=== PATIENT | male | born 1970 | race African-American/Black ===

== ENCOUNTER → 2017-07-12 | Outpatient (CLI) | payer BC ==
--- NOTE | 2017-07-12 11:00 | RADIOLOGY REPORT (SQ) ---
EXAM DESCRIPTION: U/S ABDOMEN COMPLETE W/DOPPLER COMPLETED DATE/TIME: 07/12/2017 10:29 am REASON FOR STUDY: ABN RESULTS OF LIVER FUNCTION TEST R94.5 ABNORMAL RESULTS OF LIVER FUNCTION STUDI ES R10.9 UNSPECIFIED ABDOMINAL PAIN COMPARISON: None. TECHNIQUE: Dynamic and static grayscale images acquired of the abdomen and recorded on PACS. Additio nal selected color Doppler and spectral images recorded. LIMITATIONS: None. FINDINGS: PANCREAS: No masses. Visualized pancreatic duct normal caliber. LIVER: Echotexture is coarse with increased echogenicity consistent with fatty infiltration. LIVER VASCULATURE: Normal directional flow of the main portal vein and hepatic veins. GALLBLADDER: No stones. Normal wall thickness. No pericholecystic fluid. ULTRASOUND-DETECTED MALDONADO'S SIGN: Negative. INTRAHEPATIC DUCTS AND COMMON DUCT: CBD and intrahepatic ducts normal caliber. No filling defects. INFERIOR VENA CAVA: Normal flow. AORTA: No aneurysm. RIGHT KIDNEY: Normal size. Normal echogenicity. No solid or suspicious masses. No hydronephrosis. No calcifications. LEFT KIDNEY: Normal size. Normal echogenicity. No solid or suspicious masses. No hydronephrosis. No calcifications. SPLEEN:Normal size. No solid masses. PERITONEAL AND PLEURAL SPACES: No ascites or effusions. OTHER: No other significant finding. IMPRESSION: FATTY LIVER. NO OTHER SIGNIFICANT FINDING. TECHNICAL DOCUMENTATION: JOB ID: [id number]- All Rights Reserved Reading location - IP/workstation name: [email or web address]
== END ==
LOC: RAD 09:52
PROVIDERS: ATTEND Family Medicine
DX: R94.5 Abnormal results of liver function studies (principal); R10.9 Unspecified abdominal pain
CPT/HCPCS: 76700; 93976

== ENCOUNTER 2017-09-03 12:28 | Emergency (ER) | payer BC ==
--- NOTE | 2017-09-03 12:54 | ER Document Report ---
ED Medical Screen (RME) - General Chief Complaint: Near Syncope Stated Complaint: ABDOMINAL PAIN Time Seen by Provider: 09/03/17 12:48 Notes: The patient is a 47-year-old male, past medical history hypertension, diabetes, presents after he had 2 brief syncopal episodes at [facility] this morning. He is also having right lower quadrant abdominal pain since yesterday. He denies nausea, vomiting, diarrhea, constipation, chest pain, back pain or headache. PE: Tenderness over RLQ, no palpable masses, RRR I have greeted and performed a rapid initial assessment of this patient. A comprehensive ED assessment and evaluation of the patient, analysis of test results and completion of the medical decision making process will be conducted by additional ED providers. TRAVEL OUTSIDE OF THE [place] IN LAST 30 DAYS: No - Related Data Allergies/Adverse Reactions: No Known Allergies Allergy (Verified 09/03/17 12:33) Past Medical History - Social History Chew tobacco use (# tins/day): No Frequency of alcohol use: None Drug Abuse: None - Past Medical History Cardiac Medical History: Reports: Hx Hypercholesterolemia, Hx Hypertension Endocrine Medical History: Reports: Hx Diabetes Mellitus Type 2 Renal/ Medical History: Denies: Hx Peritoneal Dialysis Physical Exam - Vital signs Vitals: Temp Pulse Resp BP Pulse Ox 98.5 F 70 14 113/54 L 99 09/03/17 12:36 09/03/17 12:36 09/03/17 12:36 09/03/17 12:36 09/03/17 12:36 Course - Vital Signs Vital signs: Temp Pulse Resp BP Pulse Ox 98.5 F 70 14 113/54 L 99 09/03/17 12:36 09/03/17 12:36 09/03/17 12:36 09/03/17 12:36 09/03/17 12:36 Doctor's Discharge - Discharge Referrals: SONALI ROUSSEAU MD [Primary Care Provider] - Follow up as needed
[2017-09-03] MEDS ORDERED: NORMAL SALINE 1000 ML 1,000 ML IV ONE (12:58)
[2017-09-03] MEDS ORDERED: METOCLOPRAMIDE HCL INJ/PF 10 MG/2 ML SDV IV ONE (13:29)
[2017-09-03] MEDS ORDERED: HYDROMORPHONE HCL INJ/PF 2 MG/ML AMPULE IV ONE (13:29)
--- NOTE | 2017-09-03 13:32 | ER Document Report ---
ED General - General Chief Complaint: Near Syncope Stated Complaint: ABDOMINAL PAIN Time Seen by Provider: 09/03/17 12:48 Mode of Arrival: Ambulatory Information source: Patient Notes: 47-year-old male presents with complaints of right lower quadrant pain. Patient notes pain started yesterday, patient went to [facility] and while at [facility] patient notes the pain worsened and he became dizzy lightheaded patient had 2 brief episodes of syncope witnessed by No previous surgical history TRAVEL OUTSIDE OF THE [place] IN LAST 30 DAYS: No - HPI Onset: Just prior to arrival Onset/Duration: Sudden Quality of pain: Sharp Severity: Moderate Pain Level: 4 Associated symptoms: Other Exacerbated by: Denies Relieved by: Denies Similar symptoms previously: No Recently seen / treated by doctor: No - Related Data Allergies/Adverse Reactions: No Known Allergies Allergy (Verified 09/03/17 12:33) Past Medical History - Social History Smoking Status: Never Smoker Cigarette use (# per day): No Chew tobacco use (# tins/day): No Smoking Education Provided: No Frequency of alcohol use: None Drug Abuse: None Family History: Reviewed & Not Pertinent Patient has suicidal ideation: No Patient has homicidal ideation: No - Past Medical History Cardiac Medical History: Reports: Hx Hypercholesterolemia, Hx Hypertension Endocrine Medical History: Reports: Hx Diabetes Mellitus Type 2 Renal/ Medical History: Denies: Hx Peritoneal Dialysis Review of Systems - Review of Systems Notes: REVIEW OF SYSTEMS: CONSTITUTIONAL : Denies fever, chills, or sweats. Denies recent illness. EENT: Denies eye, ear, throat, or mouth pain or symptoms. Denies nasal or sinus congestion or discharge. Denies throat, tongue, or mouth swelling or difficulty swallowing. CARDIOVASCULAR: Denies chest pain. Denies palpitations or racing or irregular heart beat. Denies ankle edema. RESPIRATORY: Denies cough, cold, or chest congestion. Denies shortness of breath, difficulty breathing, or wheezing. GASTROINTESTINAL: admits to rlq pain GENITOURINARY: Denies difficulty urinating, painful urination, burning, frequency, blood in urine, or discharge. MUSCULOSKELETAL: Denies back or neck pain or stiffness. Denies joint pain or swelling. SKIN: Denies rash, lesions or sores. HEMATOLOGIC : Denies easy bruising or bleeding. LYMPHATIC: Denies swollen, enlarged glands. NEUROLOGICAL: admits ot dizziness and syncope PSYCHIATRIC: Denies anxiety or stress. Denies depression, suicidal ideation, or homicidal ideation. ALL OTHER SYSTEMS REVIEWED AND NEGATIVE. Dictation was performed using [email or web address] voice recognition software PHYSICAL EXAMINATION: GENERAL: Well-appearing, well-nourished and in no acute distress. HEAD: Atraumatic, normocephalic. EYES: Pupils equal round and reactive to light, extraocular movements intact, sclera anicteric, conjunctiva are normal. ENT: Nares patent, oropharynx clear without exudates. Moist mucous membranes. NECK: Normal range of motion, supple without lymphadenopathy LUNGS: Breath sounds clear to auscultation bilaterally and equal. No wheezes rales or rhonchi. HEART: Regular rate and rhythm without murmurs ABDOMEN: Soft, tender with guarding in the RLQ, nondistended abdomen. No masses appreciated. Musculoskeletal: Normal range of motion, no pitting or edema. No cyanosis. NEUROLOGICAL: Cranial nerves grossly intact. Normal speech, normal gait. Normal sensory, motor exams PSYCH: Normal mood, normal affect. SKIN: Warm, Dry, normal turgor, no rashes or lesions noted. Physical Exam - Vital signs Vitals: Temp Pulse Resp BP Pulse Ox 98.5 F 70 14 113/54 L 99 09/03/17 12:36 09/03/17 12:36 09/03/17 12:36 09/03/17 12:36 09/03/17 12:36 Course - Re-evaluation Re-evalutation: 09/03/17 13:58 Patient was immediately sent for CT abdomen pelvis with contrast, no dissection is noted terminal ileitis is seen, patient will be started by is otherwise well- appearing no distress I believe that the pain cause the patient's syncope Patient has had a colonoscopy within the past 2 years no abnormalities noted After performing a Medical Screening Examination, I estimate there is LOW risk for ACUTE APPENDICITIS, BOWEL OBSTRUCTION, ACUTE CHOLECYSTITIS, PERFORATED DIVERTICULITIS, INCARCERATED HERNIA, PANCREATITIS, TESTICULAR TORSION or PERFORATED ULCER, thus I consider the discharge disposition reasonable. Also, there is no evidence or peritonitis, sepsis, or toxicity. I have reevaluated this patient multiple times and no significant life threatening changes are noted. The patient and I have discussed the diagnosis and risks, and we agree with discharging home with close follow-up with the understanding that symptoms and presentations can change. We also discussed returning to the Emergency Department immediately if new or worsening symptoms occur. We have discussed the symptoms which are most concerning (e.g., bloody stool, fever, changing or worsening pain, intractable vomiting - standard verbal up date) that necessitate immediate return. 09/03/17 14:01 - Vital Signs Vital signs: Temp Pulse Resp BP Pulse Ox 98.5 F 70 14 113/54 L 99 09/03/17 12:36 09/03/17 12:36 09/03/17 12:36 09/03/17 12:36 09/03/17 12:36 - Diagnostic Test Radiology reviewed: Reports reviewed Discharge - Discharge Clinical Impression: Ileitis Syncope Qualifiers: Syncope type: unspecified Qualified Code(s): R55 - Syncope and collapse Condition: Stable Disposition: HOME, SELF-CARE Instructions: Colitis, Nonspecific ([facility]) Prescriptions: Ciprofloxacin HCl [Cipro 500 mg Tablet] 500 mg PO BID #20 tablet Hydrocodone/Acetaminophen [[place] 5-325 mg Tablet] 1 tab PO Q6 #10 tablet Metoclopramide HCl [Reglan 10 mg Tablet] 1 - 2 tab PO Q6 #14 tablet Metronidazole [Flagyl 500 mg Tablet] 500 mg PO Q8 #30 tablet Referrals: SONALI ROUSSEAU MD [EMERIT[facility]] - Follow up tomorrow
--- NOTE | 2017-09-03 13:52 | RADIOLOGY REPORT (SQ) ---
EXAM DESCRIPTION: CTA ABDOMEN COMPLETED DATE/TIME: 09/03/2017 1:23 pm REASON FOR STUDY: abdominal pain, syncope, hypotension COMPARISON: None. TECHNIQUE: CT scan of the abdominal aorta extending to the iliac bifurcation performed with intraven ous contrast using helical scanning technique with dynamic intravenous contrast injection. Images rev iewed with lung, soft tissue, and bone windows. Reconstructed coronal and sagittal MPR images reviewe d. All images stored on PACS. Advanced 3D imaging as volume rendering, MIPS, SSD performed? yes All CT scanners at this facility use dose modulation, iterative reconstruction, and/or weight based d osing when appropriate to reduce radiation dose to as low as reasonably achievable (ALARA). [facility]: Dose Right [facility]: CareDose [facility]: Dose Right [facility]: Teradose 4D [facility]: Virobay CONTRAST TYPE AND DOSE: contrast/concentration: Isovue 370.00 mg/ml; Total Contrast Delivered: 100.0 ml; Total Saline Delivered: 90.0 ml RENAL FUNCTION: Not obtained secondary to urgency of examination. LIMITATIONS: None. FINDINGS: AORTA AND VESSELS: No aneurysm. No dissection. Renal arteries, SMA, celiac without stenosi s. LUNG BASES: No significant findings. No nodules or infiltrates. LIVER: Normal size. No masses or dilated ducts. SPLEEN: Normal size. No focal lesions. PANCREAS: No masses. No significant calcifications. No adjacent inflammation or peripancreatic fluid collections. Pancreatic duct not dilated. GALLBLADDER: No identified stones by CT criteria. No inflammatory changes to suggest cholecystitis. ADRENAL GLANDS: No significant masses or asymmetry. RIGHT KIDNEY AND URETER: No mass, calculi or urinary tract obstruction. LEFT KIDNEY AND URETER: No mass, calculi or urinary tract obstruction. RETROPERITONEUM: No retroperitoneal adenopathy, hemorrhage or masses. BOWEL AND PERITONEAL CAVITY: There is bowel wall thickening as well as surrounding inflammatory redd es in the terminal ileum. There is intramural fat noted within the cecum as well. The remaining vis ualized gastrointestinal tract is grossly unremarkable. APPENDIX: Normal. ABDOMINAL WALL: No masses. No hernias. BONY STRUCTURES: Mild sclerosis of the sacrum and stew about the inferior aspects of the sacroiliac j oints. This may represent sacroiliitis. 3-D IMAGING: Confirms the above findings. OTHER: No other significant finding. IMPRESSION: 1. No abdominal aortic aneurysm, dissection, or significant stenosis. 2. Terminal ileitis. Recommend correlation with any history of inflammatory bowel disease. 3. Suggestion of sacroiliitis. Recommend clinical correlation. TECHNICAL DOCUMENTATION: JOB ID: [id number] Quality ID # [id number]: Final reports with documentation of one or more dose reduction techniques (e.g., Au tomated exposure control, adjustment of the mA and/or kV according to patient size, use of iterative reconstruction technique) 2010 [employer]- All Rights Reserved Reading location - IP/workstation name: [email or web address]
[2017-09-03] MEDS ORDERED: CIPROFLOXACIN HCL 500 MG TABLET PO ONE (14:02)
[2017-09-03] MEDS ORDERED: METRONIDAZOLE 500 MG TABLET PO ONE (14:02)
[2017-09-03 14:05] LABS: HEMATOCRIT 43.2 % (37.9-51.0); HEMOGLOBIN 14.1 g/dL (13.5-17.0); MEAN CORPUSCULAR HGB CONC 32.7 g/dL (32.0-36.0); MEAN CORPUSCULAR VOLUME 83 fl (80-97); PLATELET COUNT 192 10^3/uL (150-450); RED BLOOD COUNT 5.22 10^6/uL (4.35-5.55); RED CELL DISTRIBUTION WIDTH 15.2 % (11.5-14.0); WHITE BLOOD COUNT 18.8 10^3/uL (4.0-10.5)
[2017-09-03 14:33] LABS: ABSOLUTE LYMPHOCYTES# (MANUAL) 0.6 10^3/uL (0.5-4.7); ABSOLUTE MONOCYTES # (MANUAL) 0.9 10^3/uL (0.1-1.4); ABSOLUTE NEUTROPHILS# (MANUAL) 17.3 10^3/uL (1.7-8.2); BASOPHILS % (MANUAL) 0 % (0-2); EOSINOPHILS % (MANUAL) 0 % (0-6); LYMPHOCYTES % (MANUAL) 3 % (13-45); MONOCYTES % (MANUAL) 5 % (3-13); SEGMENTED NEUTROPHILS % (MAN) 92 % (42-78); TOTAL CELLS COUNTED 100
[2017-09-03 14:34] LABS: ANISOCYTOSIS SLIGHT; HYPOCHROMASIA SLIGHT; OVALOCYTES SLIGHT; POIKILOCYTOSIS SLIGHT; TOXIC VACUOLATION PRESENT
[2017-09-03 14:35] LABS: ALANINE AMINOTRANSFERASE 34 U/L (21-72); ALBUMIN 4.7 g/dL (3.5-5.0); ALKALINE PHOSPHATASE 100 U/L (38-126); ANION GAP 16 (5-19); ASPARTATE AMINO TRANSFERASE 42 U/L (17-59); BILIRUBIN,DIRECT 0.4 mg/dL (0.0-0.4); BILIRUBIN,TOTAL 1.5 mg/dL (0.2-1.3); BLOOD UREA NITROGEN 20 mg/dL (7-20); CALCIUM 9.8 mg/dL (8.4-10.2); CARBON DIOXIDE 25 mmol/L (22-30); CHLORIDE 101 mmol/L (98-107); GLUCOSE 133 mg/dL (75-110); LIPASE 68.1 U/L (23-300); PLATELET COMMENT ADEQUATE; POTASSIUM 4.7 mmol/L (3.6-5.0); SODIUM 141.7 mmol/L (137-145); TOTAL PROTEIN 7.9 g/dL (6.3-8.2)
[2017-09-03] MEDS ORDERED: NORMAL SALINE 1000 ML 2,000 ML IV ONE (15:16)
[2017-09-03 17:04] VITALS: BP 100/57
[2017-09-03 17:43] LABS: APPEARANCE,URINE CLOUDY; BILIRUBIN,URINE NEGATIVE (NEGATIVE); COLOR,URINE AMBER; GLUCOSE, URINE NEGATIVE (NEGATIVE); KETONES,URINE NEGATIVE (NEGATIVE); LEUKOCYTE ESTERASE,URINE NEGATIVE (NEGATIVE); NITRITE,URINE NEGATIVE (NEGATIVE); PROTEIN,URINE 100 mg/dL (NEGATIVE); URINE SPECIFIC GRAVITY 1.021
[2017-09-03 17:54] LABS: URINE AMPHETAMINES SCREEN NEGATIVE; URINE BARBITURATES SCREEN NEGATIVE; URINE BENZODIAZEPINES SCREEN NEGATIVE; URINE COCAINE SCREEN NEGATIVE; URINE MARIJUANA (THC) SCREEN NEGATIVE; URINE METHADONE SCREEN NEGATIVE; URINE PHENCYCLIDINE SCREEN NEGATIVE
== END 2017-09-03 17:30 | disposition home or self-care (01) ==
LOC: ER 12:28
DX: K52.9 Noninfective gastroenteritis and colitis, unspecified (principal); R55 Syncope and collapse; E78.00 Pure hypercholesterolemia, unspecified; I10 Essential (primary) hypertension; E11.9 Type 2 diabetes mellitus without complications
CPT/HCPCS: 99284; 96361; 96374; 96375; 36415; 83605 ×2; 83690; 85025; 80053; 81001; 80307; 74175; J2765; J1170; J7030

== ENCOUNTER 2017-09-04 10:04 | Inpatient (IN) | payer BC ==
[2017-09-04] MEDS ORDERED: ONDANSETRON 4 MG TAB.RAPDIS PO PRN (10:40)
[2017-09-04] MEDS ORDERED: ACETAMINOPHEN 325 MG TABLET PO PRN (10:40)
[2017-09-04] MEDS ORDERED: OXYCODONE-ACETAMINOPHEN 5-325 MG TABLET PO PRN (10:40)
[2017-09-04] MEDS ORDERED: DEXTROSE 40% GEL 15 GM TUBE PO PRN ×2 (10:45)
[2017-09-04] MEDS ORDERED: INSULIN LISPRO 100 UNIT/ML 3 ML VIAL SUBCUT PRN (10:45)
[2017-09-04] MEDS ORDERED: GLUCAGON,HUMAN RECOMB 1 MG INJ IM PRN (10:45)
[2017-09-04] MEDS ORDERED: DEXTROSE 50%-WATER 25 GM/50 ML DISP.SYRIN IV PRN ×2 (10:45)
--- NOTE | 2017-09-04 10:52 | PDOC H&P ---
History of Present Illness Admission Date/PCP: 09/04/17 10:04 CRISTIAN GARCIA MD Patient complains of: Abdominal pain History of Present Illness: 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 47 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 This is a 47-year-old male with the history of the type 2 diabetes mellitus history of the hypertension's hyperlipidemia and a fatty liver came to the emergency department with a complaint of generalized abdominal pain nausea and not feeling well and passing out episode since last couple of days According to the patient's he was suddenly onset of this abdominal pain not feeling well he was in a [facility] yesterday and because of the pain patients pretty much passing out and patient was brought to the emergency department by the ambulance and the patient have a CT scan of the abdomen and pelvis with IV contrast was done with so some ileitis and some inflammatory disease but other than that no acute finding but patient's white count was 18,000 patient was discharged with the p.o. antibioticWhich patients did not start it yet Patients came to see me in the office this morning still complaining of abdominal pain no fever no chills no nausea no vomiting Patients have a nose family history of the Crohn's disease or inflammatory disease Patient's recently have ultrasound of the abdomen was done was suggestive fatty liver but no other acute finding At this point so decided to admit in the hospital because of the patient's still complaining of her pain and elevated white counts and further GI evaluations and discussed with the patient and the and agree Past Medical History Cardiac Medical History: Reports: Hyperlipidema, Hypertension Endocrine Medical History: Reports: Diabetes Mellitus Type 2 Social History Information Source: Patient Smoking Status: Never Smoker Frequency of Alcohol Use: None Hx Recreational Drug Use: No Family History Family History: Reviewed & Not Pertinent Parental Family History Reviewed: Yes Children Family History Reviewed: Yes Sibling(s) Family History Reviewed.: Yes Medication/Allergy Home Medications: Ciprofloxacin HCl [Cipro 500 mg Tablet] 500 mg PO BID #20 tablet 09/03/17 Hydrocodone/Acetaminophen [[place] 5-325 mg Tablet] 1 tab PO Q6 #10 tablet Metoclopramide HCl [Reglan 10 mg Tablet] 1 - 2 tab PO Q6 #14 tablet 09/03/17 Metronidazole [Flagyl 500 mg Tablet] 500 mg PO Q8 #30 tablet 09/03/17 Allergies/Adverse Reactions: No Known Allergies Allergy (Verified 09/03/17 12:33) Review of Systems Constitutional: ABSENT: chills, fever(s), headache(s), weight gain, weight loss Eyes: ABSENT: visual disturbances Ears: ABSENT: hearing changes Cardiovascular: ABSENT: chest pain, dyspnea on exertion, edema, orthropnea, palpitations Respiratory: ABSENT: cough, hemoptysis Gastrointestinal: PRESENT: abdominal pain. ABSENT: constipation, diarrhea, hematemesis, hematochezia, nausea, vomiting Genitourinary: ABSENT: dysuria, hematuria Musculoskeletal: ABSENT: joint swelling Integumentary: ABSENT: rash, wounds Neurological: ABSENT: abnormal gait, abnormal speech, confusion, dizziness, focal weakness, syncope Psychiatric: ABSENT: anxiety, depression, homidical ideation, suicidal ideation Endocrine: ABSENT: cold intolerance, heat intolerance, menstrual abnormalities, polydipsia, polyuria Hematologic/Lymphatic: ABSENT: easy bleeding, easy bruising, lymphadenopathy Physical Exam General appearance: PRESENT: no acute distress, well-developed, well-nourished Head exam: PRESENT: atraumatic, normocephalic Eye exam: PRESENT: conjunctiva pink, EOMI, PERRLA. ABSENT: scleral icterus Ear exam: PRESENT: normal external ear exam Mouth exam: PRESENT: moist, tongue midline Neck exam: PRESENT: full ROM. ABSENT: carotid bruit, JVD, lymphadenopathy, thyromegaly Respiratory exam: PRESENT: clear to auscultation higinio Cardiovascular exam: PRESENT: RRR. ABSENT: diastolic murmur, rubs, systolic murmur Pulses: PRESENT: normal dorsalis pedis pul, +2 pedal pulses bilateral Vascular exam: PRESENT: normal capillary refill GI/Abdominal exam: PRESENT: normal bowel sounds, soft, tenderness. ABSENT: distended, guarding, mass, organolmegaly, rebound Rectal exam: PRESENT: deferred Extremities exam: ABSENT: pedal edema Musculoskeletal exam: PRESENT: ambulatory Neurological exam: PRESENT: alert, awake, oriented to person, oriented to place , oriented to time, oriented to situation, CN II-XII grossly intact. ABSENT: motor sensory deficit Psychiatric exam: PRESENT: appropriate affect, normal mood. ABSENT: homicidal ideation, suicidal ideation Skin exam: PRESENT: dry, intact, warm. ABSENT: cyanosis, rash Assessment & Plan - Diagnosis (1) Ileitis Is this a current diagnosis for this admission?: Yes Plan: Start the patient on the Cipro and Flagyl and clear liquid diets and IV fluid and consult the GI and general surgery (2) Abdominal pain Qualifiers: Abdominal location: generalized Qualified Code(s): R10.84 - Generalized abdominal pain Is this a current diagnosis for this admission?: Yes Plan: Repeat the patient's clear liquid diets CT scan of the abdomen and pelvis suggest most likely ileitis with some inflammatory disease with consult to general surgery and GI for further evaluation (3) Type 2 diabetes mellitus Qualifiers: Diabetes mellitus usp insulin use: without usp use Is this a current diagnosis for this admission?: Yes Plan: Continues to current medications and sliding scale (4) Hypertension Qualifiers: Hypertension type: essential hypertension Qualified Code(s): I10 - Essential (primary) hypertension Is this a current diagnosis for this admission?: Yes Plan: Continues to current medications (5) Hyperlipidemia Qualifiers: Hyperlipidemia type: unspecified Qualified Code(s): E78.5 - Hyperlipidemia , unspecified Is this a current diagnosis for this admission?: Yes (6) Fatty liver Is this a current diagnosis for this admission?: Yes Plan: Currently all stable (7) Syncope Qualifiers: Syncope type: unspecified Qualified Code(s): R55 - Syncope and collapse Is this a current diagnosis for this admission?: Yes Plan: Patient EKG and all workup and yesterday ER was negative will continues to monitor most likely due to the pain - Time Time Spent: 30 to 50 Minutes Medications reviewed and adjusted accordingly: Yes Anticipated discharge: Home Within: Other - Inpatient Certification Medical Necessity: Need Close Monitoring Due to Risk of Patient Decompensation, Need For IV Fluids, Need for IV Antibiotics Post Hospital Care: D/C Certified Orthotist Practice Manager Documentation - Plan Summary Plan Summary: Continues IV fluid continues IV antibiotic
[2017-09-04] MEDS ORDERED: ENOXAPARIN SODIUM INJ 40 MG/0.4 ML DISP.SYRIN SUBCUT ONE (12:00)
[2017-09-04] MEDS: NORMAL SALINE 1000 ML 1,000 ML IV PRN ×2 (12:03→19:47)
[2017-09-04] MEDS: CIPROFLOXACIN 400 MG/D5W RTU 400 MG/200 ML RTUPB IV SCH ×2 (12:03→23:43)
[2017-09-04 12:32] LABS: ABSOLUTE LYMPHOCYTES (AUTO) 2.5 10^3/uL (0.5-4.7); ABSOLUTE MONOCYTES (AUTO) 1.3 10^3/uL (0.1-1.4); ABSOLUTE NEUT (AUTO) 15.8 10^3/uL (1.7-8.2); BASOPHILS % (AUTO) 0.1 % (0-2); EOSINOPHILS % (AUTO) 0.1 % (0-6); HEMATOCRIT 38.9 % (37.9-51.0); HEMOGLOBIN 12.7 g/dL (13.5-17.0); LYMPHOCYTES % (AUTO) 12.5 % (13-45); MEAN CORPUSCULAR HGB CONC 32.7 g/dL (32.0-36.0); MEAN CORPUSCULAR VOLUME 83 fl (80-97); MONOCYTES % (AUTO) 6.8 % (3-13); PLATELET COUNT 177 10^3/uL (150-450); RED BLOOD COUNT 4.71 10^6/uL (4.35-5.55); RED CELL DISTRIBUTION WIDTH 15.1 % (11.5-14.0); SEGMENTED NEUTROPHILS % (AUTO) 80.5 % (42-78); TOTAL CELLS COUNTED % (AUTO) 100 %; WHITE BLOOD COUNT 19.6 10^3/uL (4.0-10.5)
[2017-09-04 13:04] LABS: ALANINE AMINOTRANSFERASE 29 U/L (21-72); ALBUMIN 4.3 g/dL (3.5-5.0); ALKALINE PHOSPHATASE 80 U/L (38-126); ANION GAP 12 (5-19); ASPARTATE AMINO TRANSFERASE 35 U/L (17-59); BILIRUBIN,DIRECT 0.3 mg/dL (0.0-0.4); BILIRUBIN,TOTAL 1.7 mg/dL (0.2-1.3); BLOOD UREA NITROGEN 18 mg/dL (7-20); CARBON DIOXIDE 28 mmol/L (22-30); CHLORIDE 102 mmol/L (98-107); GLUCOSE 119 mg/dL (75-110); LIPASE 43.6 U/L (23-300); SODIUM 142.3 mmol/L (137-145); TOTAL PROTEIN 7.7 g/dL (6.3-8.2)
[2017-09-04 13:11] LABS: POTASSIUM 3.7 mmol/L (3.6-5.0)
[2017-09-04] MEDS: HYDROMORPHONE HCL INJ/PF 2 MG/ML AMPULE IV PRN ×2 (13:30→20:24)
--- NOTE | 2017-09-04 15:04 | PDOC CONSULTATION ---
Consultation Consult Date: 09/04/17 Attending physician:: MARCY GARCIA Consult reason:: Abdominal pain History of Present Illness Admission Date/PCP: 09/04/17 10:04 CRISTIAN GARCIA MD History of Present Illness: 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 47 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 Admitted directly to the hospital by Dr. Garcia for approximately 48 hours of abdominal pain right lower quadrant. The patient reports he was doing fine, usual state of health until yesterday morning during zoroastrianism he felt sudden onset right lower quadrant pain, and fell asleep in the pew. He was brought by ground rescue to [facility], and in route collapsed again by his verbal report. He was evaluated in the emergency department where he is found to have right lower quadrant tenderness, and a leukocytosis of 18,000. He had a CT scan of the abdomen and pelvis without oral contrast which showed inflammatory changes around the terminal ileum just at the ileocecal junction. There were no other pathologic findings. He was discharged home on p.o. medications but did not get the prescription filled. Overnight he had persisting pain. Last bowel movement was early this morning, diarrhea. He has been n.p.o. for approximately a day and a half. He was seen by Dr. Garcia this morning found to have persisting pain, and right lower quadrant tenderness and was made a direct admit. Since hospitalization is received IV fluids and antibiotics and feels no better. There is no nausea or vomiting. He has received pain medication. He actually had clear liquids for lunch although limited amount. Surgery was consulted. Patient has never had a gastrointestinal problem by verbal report, denies colonoscopy. Past Medical History Past Medical History: Hypertension, diabetes mellitus, hypercholesterolemia Cardiac Medical History: Reports: Hyperlipidema, Hypertension Endocrine Medical History: Reports: Diabetes Mellitus Type 2 Past Surgical History Past Surgical History: No surgeries Social History Smoking Status: Never Smoker Frequency of Alcohol Use: None Hx Recreational Drug Use: No Hx Prescription Drug Abuse: No Family History Family History: Reviewed & Not Pertinent Parental Family History Reviewed: Yes Children Family History Reviewed: Yes Sibling(s) Family History Reviewed.: Yes Medication/Allergy Home Medications: Aspirin [Aspirin EC] 81 mg PO DAILY 09/04/17 Ergocalciferol (Vitamin D2) [Drisdol 50,000 unit (1.25MG) Capsule] 50,000 unit PO MO@1000 09/04/17 Fluticasone Propionate [Flonase Nasal Range 50 Mcg/Range 16 gm] 2 sprays NASL DAILY 09/04/17 Glipizide [Glucotrol 5 mg Tablet] 2.5 mg PO BID 09/04/17 Simvastatin [Zocor 20 mg Tablet] 20 mg PO QHS 09/04/17 Valsartan/Hydrochlorothiazide [Diovan Hct 160-12.5 mg Tab] 1 tab PO DAILY Allergies/Adverse Reactions: No Known Allergies Allergy (Verified 09/03/17 12:33) Review of Systems Constitutional: PRESENT: other - Patient denies constitutional symptoms Eyes: ABSENT: visual disturbances Ears: ABSENT: hearing changes Cardiovascular: ABSENT: chest pain, dyspnea on exertion, edema, orthropnea, palpitations Respiratory: ABSENT: cough, hemoptysis Gastrointestinal: PRESENT: other - As per HPI Genitourinary: PRESENT: other - Patient denies Musculoskeletal: ABSENT: joint swelling Integumentary: ABSENT: rash, wounds Neurological: ABSENT: abnormal gait, abnormal speech, confusion, dizziness, focal weakness, syncope Physical Exam Vital Signs: Temp Pulse Resp BP Pulse Ox 98.8 F 74 18 109/50 L 98 09/04/17 12:40 09/04/17 12:40 09/04/17 12:40 09/04/17 12:40 09/04/17 12:40 Intake & Output 09/03/17 09/04/17 09/05/17 06:59 06:59 06:59 Weight 99.79 kg General appearance: PRESENT: no acute distress Head exam: PRESENT: normocephalic Eye exam: PRESENT: EOMI Mouth exam: PRESENT: dry mucosa Neck exam: PRESENT: full ROM Respiratory exam: PRESENT: clear to auscultation higinio Cardiovascular exam: PRESENT: RRR Pulses: PRESENT: normal carotid pulses, normal radial pulses, normal femoral pulses GI/Abdominal exam: PRESENT: other - Abdomen is soft, not distended; there are no peritoneal signs. There is right lower quadrant tenderness with limited guarding. Rectal exam: PRESENT: deferred Gentrourinary exam: PRESENT: other - No inguinal hernias Extremities exam: PRESENT: full ROM Neurological exam: PRESENT: alert, awake, oriented to person, oriented to place , oriented to time, oriented to situation Results Laboratory Results: 09/04/17 12:02 09/04/17 12:02 09/04/17 09/04/17 12:02 12:02 WBC 19.6 H RBC 4.71 Hgb 12.7 L Hct 38.9 MCV 83 MCH 27.0 MCHC 32.7 RDW 15.1 H Plt Count 177 Seg Neutrophils % 80.5 H Lymphocytes % 12.5 L Monocytes % 6.8 Eosinophils % 0.1 Basophils % 0.1 Absolute Neutrophils 15.8 H Absolute Lymphocytes 2.5 Absolute Monocytes 1.3 Absolute Eosinophils 0.0 Absolute Basophils 0.0 Sodium 142.3 Potassium 3.7 D Chloride 102 Carbon Dioxide 28 Anion Gap 12 BUN 18 Creatinine 0.87 Est GFR ( Amer) > 60 Est GFR (Non-Af Amer) > 60 Glucose 119 H Calcium 9.0 Total Bilirubin 1.7 H AST 35 ALT 29 Alkaline Phosphatase 80 Total Protein 7.7 Albumin 4.3 Lipase 43.6 Status: Image reviewed by me - CT scan reviewed by me; limited study due to absence of oral contrast; the appendix appears retrocecal and uninvolved in the terminal ileal inflammation. There is some mesenteric stranding of the ileocecal region. There is no obvious obstruction , free fluid or free air. Assessment & Plan - Diagnosis (1) Abdominal pain Qualifiers: Abdominal location: generalized Qualified Code(s): R10.84 - Generalized abdominal pain Is this a current diagnosis for this admission?: Yes Plan: Impression: Acute abdominal pain right lower quadrant localized associated with leukocytosis and nonenhanced CT scan findings consistent with inflammation of the terminal ileum consistent with ileitis versus microperforation versus malignancy; cannot rule out localized inflammatory bowel disease; no evidence of qasim peritonitis, peritoneal fluid, free air, or acute appendicitis. Recommendations: 1. Keep n.p.o. 2. Increase IV fluids 3. Continue empiric antibiotic therapy 4. We will reexamine patient later today. If pain worsens, repeat imaging with oral contrast, or consideration for laparoscopic possible open exploration. This was provisionally discussed with patient and his . (2) Fatty liver Is this a current diagnosis for this admission?: Yes (3) Hyperlipidemia Qualifiers: Hyperlipidemia type: unspecified Qualified Code(s): E78.5 - Hyperlipidemia , unspecified Is this a current diagnosis for this admission?: Yes (4) Hypertension Qualifiers: Hypertension type: essential hypertension Qualified Code(s): I10 - Essential (primary) hypertension Is this a current diagnosis for this admission?: Yes (5) Type 2 diabetes mellitus Qualifiers: Diabetes mellitus fpc insulin use: without adjunct faculty for medical terminology use Is this a current diagnosis for this admission?: Yes (6) Ileitis Is this a current diagnosis for this admission?: Yes (7) Syncope Qualifiers: Syncope type: unspecified Qualified Code(s): R55 - Syncope and collapse Is this a current diagnosis for this admission?: Yes - Time Time Spent: 50 to 70 Minutes Smoking Cessation Education: over 10 minutes Medications reviewed and adjusted accordingly: Yes Anticipated discharge: Home - Inpatient Certification Based on my medical assessment, after consideration of the patient's comorbidities, presenting symptoms, or acuity I expect that the services needed warrant INPATIENT care.: Yes I certify that my determination is in accordance with my understanding of Medicare's requirements for reasonable and necessary INPATIENT services [42 CFR 412.3e].: Yes Medical Necessity: Need For IV Fluids, Need for Pain Control, Need for IV Antibiotics
[2017-09-04] MEDS: METRONIDAZOLE 500 MG/NS RTU 500 MG/100 ML RTUPB IV SCH ×2 (15:52→20:25)
--- NOTE | 2017-09-04 19:42 | PDOC CONSULTATION ---
Consultation Consult Date: 09/04/17 History of Present Illness Admission Date/PCP: 09/04/17 10:04 CRISTIAN GARCIA MD History of Present Illness: 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 47 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 patient who was admitted directly from Dr. Garcia's office with right lower quadrant pain. He woke up yesterday morning with pain and it has been constant ever since. He denies any nausea or vomiting but had one episode of diarrhea this morning. He had no diarrhea for the fall was 30 hours of his illness. He did have a fever of 101 last night. There is no one else at home with similar illness. He was at the emergency room last night where he had a CTA of the chest and abdomen without contrast showing evidence of terminal ileitis and suggestion of sacroiliitis. He did receive IV antibiotics are the emergency room last night and is currently on Cipro and Flagyl. His white count was 19 on admission with a left shift. He had an ultrasound in June for abdominal pain and these only showed fatty liver. He had a similar episode of right lower quadrant pain back in June that lasted for about a week. The pain was constant with no associated change in bowel habit, nausea, or vomiting. He has had no other episodes in the past. His bowels usually move once or twice a day. He has lost about 20 pounds in the last few months when he has been eating less trying to lose weight. Past Medical History Cardiac Medical History: Reports: Hyperlipidema, Hypertension Endocrine Medical History: Reports: Diabetes Mellitus Type 2 Social History Smoking Status: Never Smoker Frequency of Alcohol Use: None Hx Recreational Drug Use: No Hx Prescription Drug Abuse: No Family History Family History: Reviewed & Not Pertinent Parental Family History Reviewed: No Children Family History Reviewed: NA Sibling(s) Family History Reviewed.: NA Medication/Allergy Home Medications: Aspirin [Aspirin EC] 81 mg PO DAILY 09/04/17 Ergocalciferol (Vitamin D2) [Drisdol 50,000 unit (1.25MG) Capsule] 50,000 unit PO MO@1000 09/04/17 Fluticasone Propionate [Flonase Nasal Minden 50 Mcg/Minden 16 gm] 2 sprays NASL DAILY 09/04/17 Glipizide [Glucotrol 5 mg Tablet] 2.5 mg PO BID 09/04/17 Simvastatin [Zocor 20 mg Tablet] 20 mg PO QHS 09/04/17 Valsartan/Hydrochlorothiazide [Diovan Hct 160-12.5 mg Tab] 1 tab PO DAILY Allergies/Adverse Reactions: No Known Allergies Allergy (Verified 09/03/17 12:33) Review of Systems All systems: reviewed and no additional remarkable complaints except as stated Physical Exam Vital Signs: Temp Pulse Resp BP Pulse Ox 98.8 F 77 18 95/48 L 96 09/04/17 16:18 09/04/17 16:18 09/04/17 16:18 09/04/17 16:18 09/04/17 16:18 Intake & Output 09/03/17 09/04/17 09/05/17 06:59 06:59 06:59 Intake Total 200 Balance 200 Weight 99.79 kg Exam: General: Patient is alert and looks well. HEENT: There is no pallor or jaundice. PERRLA. Oropharynx normal Respiratory: No chest deformity. No respiratory distress. Chest wall palpitation was unremarkable. Breath sounds were normal Cardiovascular: Heart sounds 1 and 2 normal with no murmurs. Abdominal: Not distended. Mild diffuse tenderness with more tenderness in the right lower quadrant. No guarding or rebound. Liver and spleen not palpable. No ascites demonstrated. Bowel sounds active. Rectal examination was deferred. Extremities: No edema Neurological: Alert and oriented x4. Grossly nonfocal. Normal speech Skin: No significant rash Psychological: Normal affect Results Laboratory Results: 09/04/17 12:02 09/04/17 12:02 09/04/17 09/04/17 12:02 12:02 WBC 19.6 H RBC 4.71 Hgb 12.7 L Hct 38.9 MCV 83 MCH 27.0 MCHC 32.7 RDW 15.1 H Plt Count 177 Seg Neutrophils % 80.5 H Lymphocytes % 12.5 L Monocytes % 6.8 Eosinophils % 0.1 Basophils % 0.1 Absolute Neutrophils 15.8 H Absolute Lymphocytes 2.5 Absolute Monocytes 1.3 Absolute Eosinophils 0.0 Absolute Basophils 0.0 Sodium 142.3 Potassium 3.7 D Chloride 102 Carbon Dioxide 28 Anion Gap 12 BUN 18 Creatinine 0.87 Est GFR ( Amer) > 60 Est GFR (Non-Af Amer) > 60 Glucose 119 H Calcium 9.0 Total Bilirubin 1.7 H AST 35 ALT 29 Alkaline Phosphatase 80 Total Protein 7.7 Albumin 4.3 Lipase 43.6 Assessment & Plan - Diagnosis (1) Right lower quadrant abdominal pain Is this a current diagnosis for this admission?: Yes Plan: He presents with a 36-48 hour history of right lower quadrant pain with elevated WBC, some fever and one episode of diarrhea. His symptoms are suggestive of an infectious process except that he had a one-week episode of similar symptoms about 2 months ago. Inflammatory disease would need to be ruled out especially with the suggestion for sacroiliitis on the CAT scan. I will suggest a CT enterography while he will continue with Cipro and Flagyl. (2) Abnormal CT scan, gastrointestinal tract Is this a current diagnosis for this admission?: Yes
--- NOTE | 2017-09-04 20:22 | EKG REPORT ---
SEVERITY:- BORDERLINE ECG - SINUS RHYTHM BORDERLINE T ABNORMALITIES, INFERIOR LEADS : Confirmed by: Consuelo Jimenez MD 04-Sep-2017 20:20:55
[2017-09-04] MEDS: FAMOTIDINE INJ/PF 20 MG/2 ML SDV IV SCH (21:48)
[2017-09-05] MEDS: NORMAL SALINE 1000 ML 1,000 ML IV PRN ×3 (03:04→21:57)
[2017-09-05] MEDS: METRONIDAZOLE 500 MG/NS RTU 500 MG/100 ML RTUPB IV SCH ×4 (04:25→20:19)
[2017-09-05 06:19] LABS: ABSOLUTE LYMPHOCYTES (AUTO) 1.6 10^3/uL (0.5-4.7); ABSOLUTE NEUT (AUTO) 11.2 10^3/uL (1.7-8.2); BASOPHILS % (AUTO) 0.3 % (0-2); EOSINOPHILS % (AUTO) 0.1 % (0-6); HEMATOCRIT 34.7 % (37.9-51.0); HEMOGLOBIN 11.6 g/dL (13.5-17.0); LYMPHOCYTES % (AUTO) 11.5 % (13-45); MEAN CORPUSCULAR HEMOGLOBIN 27.4 pg (27.0-33.4); MEAN CORPUSCULAR HGB CONC 33.5 g/dL (32.0-36.0); MEAN CORPUSCULAR VOLUME 82 fl (80-97); MONOCYTES % (AUTO) 7.1 % (3-13); PLATELET COUNT 148 10^3/uL (150-450); RED BLOOD COUNT 4.24 10^6/uL (4.35-5.55); RED CELL DISTRIBUTION WIDTH 14.9 % (11.5-14.0); TOTAL CELLS COUNTED % (AUTO) 100 %; WHITE BLOOD COUNT 13.9 10^3/uL (4.0-10.5)
[2017-09-05 06:48] LABS: ALANINE AMINOTRANSFERASE 28 U/L (21-72); ALBUMIN 2.9 g/dL (3.5-5.0); ALKALINE PHOSPHATASE 61 U/L (38-126); ANION GAP 10 (5-19); ASPARTATE AMINO TRANSFERASE 25 U/L (17-59); BILIRUBIN,DIRECT 0.4 mg/dL (0.0-0.4); BILIRUBIN,TOTAL 1.6 mg/dL (0.2-1.3); BLOOD UREA NITROGEN 14 mg/dL (7-20); CALCIUM 8.3 mg/dL (8.4-10.2); CARBON DIOXIDE 23 mmol/L (22-30); CHLORIDE 107 mmol/L (98-107); GLUCOSE 113 mg/dL (75-110); LIPASE 50.3 U/L (23-300); POTASSIUM 3.6 mmol/L (3.6-5.0); SODIUM 140.4 mmol/L (137-145); TOTAL PROTEIN 5.8 g/dL (6.3-8.2)
[2017-09-05] MEDS ORDERED: ENOXAPARIN SODIUM INJ 40 MG/0.4 ML DISP.SYRIN SUBCUT SCH (10:00)
[2017-09-05] MEDS ORDERED: (PENDING PHARMACY ID) (Valsartan/Hydrochlorothiazide [Diovan Hct 160-12.5 Mg Tab] 1 TAB) PO SCH (10:00)
[2017-09-05] MEDS: ENOXAPARIN SODIUM INJ 40 MG/0.4 ML DISP.SYRIN SUBCUT SCH (10:19)
[2017-09-05] MEDS: FAMOTIDINE INJ/PF 20 MG/2 ML SDV IV SCH ×2 (10:19→21:57)
[2017-09-05] MEDS: VALSARTAN 160 MG TABLET PO SCH (11:25)
[2017-09-05] MEDS: HYDROCHLOROTHIAZIDE 12.5 MG TABLET PO SCH (11:25)
--- NOTE | 2017-09-05 12:34 | PDOC PROGRESS REPORT ---
Subjective Progress Note for:: 09/05/17 Subjective:: Patient is currently doing fair Patient slept last night with the pain medications Patient still have a pain Patient seen by the Dr. Mistry ordered on the CT scan with oral contrast and IV Patient seen by general surgery Patient still have a low-grade temperature patient's white count is getting better Reason For Visit: ABDOMINAL PAIN Physical Exam Vital Signs: Temp Pulse Resp BP Pulse Ox 98.6 F 83 18 114/57 L 94 09/05/17 07:58 09/05/17 07:58 09/05/17 08:27 09/05/17 07:58 09/05/17 07:58 Intake & Output 09/04/17 09/05/17 09/06/17 06:59 06:59 06:59 Intake Total 300 Output Total 200 Balance 100 Weight 99.79 kg General appearance: PRESENT: no acute distress, well-developed, well-nourished Head exam: PRESENT: atraumatic, normocephalic Eye exam: PRESENT: conjunctiva pink, EOMI, PERRLA. ABSENT: scleral icterus Ear exam: PRESENT: normal external ear exam Mouth exam: PRESENT: moist, tongue midline Neck exam: PRESENT: full ROM. ABSENT: carotid bruit, JVD, lymphadenopathy, thyromegaly Respiratory exam: PRESENT: clear to auscultation higinio Cardiovascular exam: PRESENT: RRR. ABSENT: diastolic murmur, rubs, systolic murmur Pulses: PRESENT: normal dorsalis pedis pul, +2 pedal pulses bilateral Vascular exam: PRESENT: normal capillary refill GI/Abdominal exam: PRESENT: normal bowel sounds, soft, tenderness. ABSENT: distended, guarding, mass, organolmegaly, rebound Rectal exam: PRESENT: deferred Neurological exam: PRESENT: alert, awake, oriented to person, oriented to place , oriented to time, oriented to situation, CN II-XII grossly intact. ABSENT: motor sensory deficit Psychiatric exam: PRESENT: appropriate affect, normal mood. ABSENT: homicidal ideation, suicidal ideation Skin exam: PRESENT: dry, intact, warm. ABSENT: cyanosis, rash Results Laboratory Results: 09/05/17 06:09 09/05/17 06:09 09/04/17 09/04/17 09/05/17 12:02 12:02 06:09 WBC 19.6 H 13.9 H RBC 4.71 4.24 L Hgb 12.7 L 11.6 L Hct 38.9 34.7 L MCV 83 82 MCH 27.0 27.4 MCHC 32.7 33.5 RDW 15.1 H 14.9 H Plt Count 177 148 L Seg Neutrophils % 80.5 H 81.0 H Lymphocytes % 12.5 L 11.5 L Monocytes % 6.8 7.1 Eosinophils % 0.1 0.1 Basophils % 0.1 0.3 Absolute Neutrophils 15.8 H 11.2 H Absolute Lymphocytes 2.5 1.6 Absolute Monocytes 1.3 1.0 Absolute Eosinophils 0.0 0.0 Absolute Basophils 0.0 0.0 Sodium 142.3 Potassium 3.7 D Chloride 102 Carbon Dioxide 28 Anion Gap 12 BUN 18 Creatinine 0.87 Est GFR ( Amer) > 60 Est GFR (Non-Af Amer) > 60 Glucose 119 H Calcium 9.0 Total Bilirubin 1.7 H AST 35 ALT 29 Alkaline Phosphatase 80 Total Protein 7.7 Albumin 4.3 Lipase 43.6 Stool Occult Blood 09/05/17 09/05/17 06:09 11:45 WBC RBC Hgb Hct MCV MCH MCHC RDW Plt Count Seg Neutrophils % Lymphocytes % Monocytes % Eosinophils % Basophils % Absolute Neutrophils Absolute Lymphocytes Absolute Monocytes Absolute Eosinophils Absolute Basophils Sodium 140.4 Potassium 3.6 Chloride 107 Carbon Dioxide 23 Anion Gap 10 BUN 14 Creatinine 0.84 Est GFR ( Amer) > 60 Est GFR (Non-Af Amer) > 60 Glucose 113 H Calcium 8.3 L Total Bilirubin 1.6 H AST 25 ALT 28 Alkaline Phosphatase 61 Total Protein 5.8 L Albumin 2.9 L Lipase 50.3 Stool Occult Blood NEGATIVE Assessment & Plan - Diagnosis (1) Ileitis Is this a current diagnosis for this admission?: Yes Plan: Continues to IV antibiotic follow with the GI and surgery (2) Abdominal pain Qualifiers: Abdominal location: generalized Qualified Code(s): R10.84 - Generalized abdominal pain Is this a current diagnosis for this admission?: Yes Plan: Patient still continues n.p.o. continues IV fluid will reduce to 150c (3) Type 2 diabetes mellitus Qualifiers: Diabetes mellitus clerk general insulin use: without care home use Is this a current diagnosis for this admission?: Yes Plan: Continues to current medications and sliding scale (4) Hypertension Qualifiers: Hypertension type: essential hypertension Qualified Code(s): I10 - Essential (primary) hypertension Is this a current diagnosis for this admission?: Yes Plan: Continues to current medications (5) Hyperlipidemia Qualifiers: Hyperlipidemia type: unspecified Qualified Code(s): E78.5 - Hyperlipidemia , unspecified Is this a current diagnosis for this admission?: Yes (6) Fatty liver Is this a current diagnosis for this admission?: Yes Plan: Currently all stable (7) Syncope Qualifiers: Syncope type: unspecified Qualified Code(s): R55 - Syncope and collapse Is this a current diagnosis for this admission?: Yes - Time Time Spent with patient: 15-24 minutes Anticipated discharge: Home Within: Other - Inpatient Certification Medical Necessity: Need For IV Fluids, Need for IV Antibiotics 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
[2017-09-05] MEDS: HYDROMORPHONE HCL INJ/PF 2 MG/ML AMPULE IV PRN ×2 (12:36→20:18)
[2017-09-05] MEDS: CIPROFLOXACIN 400 MG/D5W RTU 400 MG/200 ML RTUPB IV SCH (12:39)
[2017-09-05] MEDS: ONDANSETRON 4 MG TAB.RAPDIS PO PRN (13:41)
--- NOTE | 2017-09-05 16:14 | RADIOLOGY REPORT (SQ) ---
EXAM DESCRIPTION: CT ABD/PELVIS COMBO COMPLETED DATE/TIME: 09/05/2017 2:32 pm REASON FOR STUDY: PLS DO ENTEROGRAPHY FOR RECURRENT RLQ PAIN ?[facility] COMPARISON: CT abdomen and pelvis 09/03/2017 Abdominal ultrasound 07/12/2017 TECHNIQUE: CT scan of the abdomen and pelvis performed with and without intravenous contrast, and wi th positive and negative oral contrast. Contrasted imaging performed helical scanning technique and d ynamic intravenous contrast injection. Images reviewed with lung, soft tissue, and bone windows. Lewis nstructed coronal and sagittal MPR images reviewed. Delayed images for evaluation of the urinary syst em also acquired. All images stored on PACS. All CT scanners at this facility use dose modulation, iterative reconstruction, and/or weight based d osing when appropriate to reduce radiation dose to as low as reasonably achievable (ALARA). [facility]: Dose Right [facility]: CareDose [facility]: Dose Right [facility]: Teradose 4D [facility]: [employer] ([employer]) CONTRAST TYPE AND DOSE: contrast/concentration: Isovue 370.00 mg/ml; Total Contrast Delivered: 60.0 ml; Total Saline Delivered: 80.0 ml RENAL FUNCTION: None required. The patient is less than 50 years old. RADIATION DOSE: CT Rad equipment meets quality standard of care and radiation dose reduction techniq ues were employed. CTDIvol: 16.3 - 25.4 mGy. DLP: 4444 mGy-cm. . LIMITATIONS: None. FINDINGS: NON-CONTRASTED IMAGING: No significant renal or bladder calcifications. No other significa nt organ calcifications. POST-CONTRASTED IMAGING: In the right lower quadrant, medial to the ileocecal valve, there is a tubular shaped abscess measuri ng about 6 x 2 cm in size along the small bowel mesentery. A 1 cm diverticulum is present along the distal ileum. Findings are worrisome for a perforated ileal diverticulum and mesenteric abscess. There is an increase in the inflammatory stranding of right lower quadrant mesenteric fat since 018. This is best shown on coronal reconstruction images 38-43. These findings were reviewed with . No free intraperitoneal air. Trace cul-de-sac pelvic fluid. No bowel obstruction. Few colonic dive rticuli are present. Normal appendix. LOWER CHEST: Bibasilar consolidation likely atelectasis. Pneumonia could not be excluded. LIVER: Normal size. No masses. No dilated ducts. SPLEEN: Normal size. No focal lesions. PANCREAS: No masses. No significant calcifications. No adjacent inflammation or peripancreatic fluid collections. Pancreatic duct not dilated. GALLBLADDER: No identified stones by CT criteria. No inflammatory changes to suggest cholecystitis. ADRENAL GLANDS: No significant masses or asymmetry. RIGHT KIDNEY AND URETER: No solid masses. No significant calcifications. No hydronephrosis or hyd roureter. LEFT KIDNEY AND URETER: No solid masses. No significant calcifications. No hydronephrosis or hydr oureter. AORTA AND VESSELS: No aneurysm. No dissection. Renal arteries, SMA, celiac without stenosis. RETROPERITONEUM: No retroperitoneal adenopathy, hemorrhage or masses. BOWEL AND PERITONEAL CAVITY: As above APPENDIX: Normal. PELVIS: Trace cul-de-sac fluid. Normal bladder. No adenopathy. ABDOMINAL WALL: No masses. No hernias. BONES: Limbus deformity at the T10 vertebral body, likely due to remote prior apophyseal injury or un derdevelopment. OTHER: No other significant finding. IMPRESSION: 6 x 2 cm abscess in the right lower quadrant along the medial aspect of the distal ileum . Suspect a perforated ileal diverticulum. Findings discussed with the patient's attending surgeon. TECHNICAL DOCUMENTATION: JOB ID: [id number] Quality ID # [id number]: Final reports with documentation of one or more dose reduction techniques (e.g., Au tomated exposure control, adjustment of the mA and/or kV according to patient size, use of iterative reconstruction technique) 2010 [employer]- All Rights Reserved Reading location - IP/workstation name: [facility]
--- NOTE | 2017-09-05 19:16 | PDOC PROGRESS REPORT ---
Subjective Progress Note for:: 09/05/17 Subjective:: 47-year-old patient admitted 2 days ago with right lower quadrant pain, fever and leukocytosis. He was started on Cipro and Flagyl. He had another CAT scan today of the abdomen and pelvis with p.o. and IV contrast. This showed significant inflammation with possible abscess in the distal 5-7 cm terminal ileum with a possible diverticulum in that same area. The ileocecal valve, cecum and the rest of his intestines appeared normal. Overall he is doing better with less pain which is now intermittent rather than constant. He has had 2 bowel movements today. He did have some nausea but no vomiting. His white count has also reduced to 14 Reason For Visit: ABDOMINAL PAIN Physical Exam Vital Signs: Temp Pulse Resp BP Pulse Ox 98.6 F 74 18 107/57 L 96 09/05/17 16:04 09/05/17 16:04 09/05/17 17:41 09/05/17 16:04 09/05/17 17:41 Intake & Output 09/04/17 09/05/17 09/06/17 06:59 06:59 06:59 Intake Total 300 400 Output Total 200 Balance 100 400 Weight 99.75 kg Exam: General: Patient is alert and looks well. HEENT: There is no pallor or jaundice. PERRLA. Oropharynx normal Respiratory: No chest deformity. No respiratory distress. Chest wall palpitation was unremarkable. Breath sounds were normal Cardiovascular: Heart sounds 1 and 2 normal with no murmurs. Abdominal: There is mild tenderness in the right lower quadrant with some rebound tenderness. Overall his tenderness appear better than yesterday Extremities: No edema Neurological: Alert and oriented x4. Grossly nonfocal. Normal speech Skin: No significant rash Psychological: Normal affect Results Laboratory Results: 09/05/17 06:09 09/05/17 06:09 09/05/17 09/05/17 09/05/17 06:09 06:09 11:45 WBC 13.9 H RBC 4.24 L Hgb 11.6 L Hct 34.7 L MCV 82 MCH 27.4 MCHC 33.5 RDW 14.9 H Plt Count 148 L Seg Neutrophils % 81.0 H Lymphocytes % 11.5 L Monocytes % 7.1 Eosinophils % 0.1 Basophils % 0.3 Absolute Neutrophils 11.2 H Absolute Lymphocytes 1.6 Absolute Monocytes 1.0 Absolute Eosinophils 0.0 Absolute Basophils 0.0 Sodium 140.4 Potassium 3.6 Chloride 107 Carbon Dioxide 23 Anion Gap 10 BUN 14 Creatinine 0.84 Est GFR ( Amer) > 60 Est GFR (Non-Af Amer) > 60 Glucose 113 H Calcium 8.3 L Total Bilirubin 1.6 H AST 25 ALT 28 Alkaline Phosphatase 61 Total Protein 5.8 L Albumin 2.9 L Lipase 50.3 Stool Occult Blood NEGATIVE Impressions: Abdomen/Pelvis CT 09/05/17 00:00 IMPRESSION: 6 x 2 cm abscess in the right lower quadrant along the medial aspect of the distal ileum. Suspect a perforated ileal diverticulum. Findings discussed with the patient's attending surgeon. Assessment & Plan - Diagnosis (1) Terminal ileitis of small intestine Is this a current diagnosis for this admission?: Yes Plan: He has significant inflammation in a short part of his terminal ileum with the rest of his small bowel been normal. This could still be an acute infectious process though there was also a mention of a possible diverticulum in the area of inflammation. He is improving clinically and his white count is coming down. We will continue with IV antibiotics at least for a few more days before changing to p.o. I will resume clear liquids today and see how he does. (2) Right lower quadrant abdominal pain Is this a current diagnosis for this admission?: Yes (3) Abnormal CT scan, gastrointestinal tract Is this a current diagnosis for this admission?: Yes
--- NOTE | 2017-09-05 20:31 | PDOC PROGRESS REPORT ---
Subjective Progress Note for:: 09/05/17 Subjective:: This is a 47-year-old male with terminal ileitis, diagnosed on CT scan. The patient reports that his abdominal pain is stable. He denies fevers, chills, nausea, vomiting. The patient also denies chest pain, shortness of breath, orthostasis, dizziness, headache. Reason For Visit: ABDOMINAL PAIN Physical Exam Vital Signs: Temp Pulse Resp BP Pulse Ox 98.6 F 74 18 107/57 L 96 09/05/17 16:04 09/05/17 16:04 09/05/17 17:41 09/05/17 16:04 09/05/17 17:41 Intake & Output 09/04/17 09/05/17 09/06/17 06:59 06:59 06:59 Intake Total 300 400 Output Total 200 Balance 100 400 Weight 99.75 kg General appearance: PRESENT: cooperative, well-developed, well-nourished Head exam: PRESENT: atraumatic, normocephalic Eye exam: PRESENT: EOMI, PERRLA. ABSENT: scleral icterus Mouth exam: PRESENT: neck supple Neck exam: ABSENT: meningismus, tenderness, thyromegaly, tracheal deviation Respiratory exam: PRESENT: clear to auscultation higinio. ABSENT: chest wall tenderness Cardiovascular exam: PRESENT: RRR Pulses: PRESENT: normal radial pulses GI/Abdominal exam: PRESENT: tenderness - Right lower quadrant. ABSENT: distended, hernia, rigid Rectal exam: PRESENT: deferred Extremities exam: ABSENT: clubbing Musculoskeletal exam: ABSENT: deformity Neurological exam: PRESENT: alert, awake, oriented to person, oriented to place , oriented to time, oriented to situation, CN II-XII grossly intact. ABSENT: motor sensory deficit Psychiatric exam: ABSENT: agitated, anxious, depressed Skin exam: ABSENT: cyanosis, erythema, jaundice Results Laboratory Results: 09/05/17 06:09 09/05/17 06:09 09/05/17 09/05/17 09/05/17 06:09 06:09 11:45 WBC 13.9 H RBC 4.24 L Hgb 11.6 L Hct 34.7 L MCV 82 MCH 27.4 MCHC 33.5 RDW 14.9 H Plt Count 148 L Seg Neutrophils % 81.0 H Lymphocytes % 11.5 L Monocytes % 7.1 Eosinophils % 0.1 Basophils % 0.3 Absolute Neutrophils 11.2 H Absolute Lymphocytes 1.6 Absolute Monocytes 1.0 Absolute Eosinophils 0.0 Absolute Basophils 0.0 Sodium 140.4 Potassium 3.6 Chloride 107 Carbon Dioxide 23 Anion Gap 10 BUN 14 Creatinine 0.84 Est GFR ( Amer) > 60 Est GFR (Non-Af Amer) > 60 Glucose 113 H Calcium 8.3 L Total Bilirubin 1.6 H AST 25 ALT 28 Alkaline Phosphatase 61 Total Protein 5.8 L Albumin 2.9 L Lipase 50.3 Stool Occult Blood NEGATIVE Impressions: Abdomen/Pelvis CT 09/05/17 00:00 IMPRESSION: 6 x 2 cm abscess in the right lower quadrant along the medial aspect of the distal ileum. Suspect a perforated ileal diverticulum. Findings discussed with the patient's attending surgeon. Assessment & Plan - Diagnosis (1) Terminal ileitis of small intestine Is this a current diagnosis for this admission?: Yes - Plan Summary Plan Summary: This is a 47-year-old male with terminal ileitis of undetermined etiology. The patient has a large amount of inflammation in the right lower quadrant, with a possible developing abscess. I have reviewed the images of his previous CT scan , as well as the CT performed today. At this time the patient's abdominal exam is stable, his leukocytosis has improved somewhat, he does not appear toxic, and his pain is not worsening. I have reviewed the CT scan with Dr. Bermudez and Dr. Mistry. Currently the plan is to continue IV antibiotics and monitor the patient closely. If the patient worsens, he could require operative exploration and bowel resection.
[2017-09-06] MEDS: CIPROFLOXACIN 400 MG/D5W RTU 400 MG/200 ML RTUPB IV SCH ×2 (00:13→13:54)
[2017-09-06] MEDS: METRONIDAZOLE 500 MG/NS RTU 500 MG/100 ML RTUPB IV SCH ×4 (02:52→20:17)
[2017-09-06 07:18] LABS: ABSOLUTE BASOPHILS # (AUTO) 0.1 10^3/uL (0.0-0.2); ABSOLUTE LYMPHOCYTES (AUTO) 1.4 10^3/uL (0.5-4.7); ABSOLUTE NEUT (AUTO) 9.7 10^3/uL (1.7-8.2); BASOPHILS % (AUTO) 0.6 % (0-2); EOSINOPHILS % (AUTO) 0.4 % (0-6); HEMATOCRIT 34.2 % (37.9-51.0); HEMOGLOBIN 11.4 g/dL (13.5-17.0); LYMPHOCYTES % (AUTO) 11.4 % (13-45); MEAN CORPUSCULAR HEMOGLOBIN 27.2 pg (27.0-33.4); MEAN CORPUSCULAR HGB CONC 33.2 g/dL (32.0-36.0); MEAN CORPUSCULAR VOLUME 82 fl (80-97); MONOCYTES % (AUTO) 8.3 % (3-13); PLATELET COUNT 165 10^3/uL (150-450); RED BLOOD COUNT 4.17 10^6/uL (4.35-5.55); RED CELL DISTRIBUTION WIDTH 14.7 % (11.5-14.0); SEGMENTED NEUTROPHILS % (AUTO) 79.3 % (42-78); TOTAL CELLS COUNTED % (AUTO) 100 %; WHITE BLOOD COUNT 12.2 10^3/uL (4.0-10.5)
[2017-09-06 08:30] LABS: ANION GAP 10 (5-19); BLOOD UREA NITROGEN 12 mg/dL (7-20); CALCIUM 8.3 mg/dL (8.4-10.2); CARBON DIOXIDE 24 mmol/L (22-30); CHLORIDE 107 mmol/L (98-107); GLUCOSE 107 mg/dL (75-110); LIPASE 51.8 U/L (23-300); SODIUM 141.4 mmol/L (137-145)
--- NOTE | 2017-09-06 09:18 | PDOC PROGRESS REPORT ---
Subjective Progress Note for:: 09/06/17 Subjective:: Patient is currently doing well Patient's denied any chest pain denied any shortness of the breath Patient's abdominal pain is much better Patient have a repeat CT scan of the abdomen and pelvis done yesterday which was questionable abscess and inflammations which currently seen by the surgery and Dr. Mistry plan is continues to IV antibiotic and patients currently improving Reason For Visit: ABDOMINAL PAIN Physical Exam Vital Signs: Temp Pulse Resp BP Pulse Ox 98.4 F 81 20 127/70 H 95 09/06/17 08:46 09/06/17 08:46 09/06/17 08:46 09/06/17 08:46 09/06/17 08:46 Intake & Output 09/05/17 09/06/17 09/07/17 06:59 06:59 06:59 Intake Total 300 400 Output Total 200 200 Balance 100 200 Weight 99.75 kg 101.5 kg General appearance: PRESENT: no acute distress, well-developed, well-nourished Head exam: PRESENT: atraumatic, normocephalic Eye exam: PRESENT: conjunctiva pink, EOMI, PERRLA. ABSENT: scleral icterus Ear exam: PRESENT: normal external ear exam Mouth exam: PRESENT: moist, tongue midline Neck exam: PRESENT: full ROM. ABSENT: carotid bruit, JVD, lymphadenopathy, thyromegaly Respiratory exam: PRESENT: clear to auscultation higinio Cardiovascular exam: PRESENT: RRR. ABSENT: diastolic murmur, rubs, systolic murmur Pulses: PRESENT: normal dorsalis pedis pul, +2 pedal pulses bilateral Vascular exam: PRESENT: normal capillary refill GI/Abdominal exam: PRESENT: normal bowel sounds, soft, tenderness. ABSENT: distended, guarding, mass, organolmegaly, rebound Rectal exam: PRESENT: deferred Musculoskeletal exam: PRESENT: ambulatory Neurological exam: PRESENT: alert, awake, oriented to person, oriented to place , oriented to time, oriented to situation, CN II-XII grossly intact. ABSENT: motor sensory deficit Psychiatric exam: PRESENT: appropriate affect, normal mood. ABSENT: homicidal ideation, suicidal ideation Skin exam: PRESENT: dry, intact, warm. ABSENT: cyanosis, rash Results Laboratory Results: 09/06/17 06:28 09/06/17 06:28 09/05/17 09/06/17 09/06/17 11:45 06:28 06:28 WBC 12.2 H RBC 4.17 L Hgb 11.4 L Hct 34.2 L MCV 82 MCH 27.2 MCHC 33.2 RDW 14.7 H Plt Count 165 Seg Neutrophils % 79.3 H Lymphocytes % 11.4 L Monocytes % 8.3 Eosinophils % 0.4 Basophils % 0.6 Absolute Neutrophils 9.7 H Absolute Lymphocytes 1.4 Absolute Monocytes 1.0 Absolute Eosinophils 0.0 Absolute Basophils 0.1 Sodium 141.4 Potassium 4.0 Chloride 107 Carbon Dioxide 24 Anion Gap 10 BUN 12 Creatinine 0.88 Est GFR ( Amer) > 60 Est GFR (Non-Af Amer) > 60 Glucose 107 Calcium 8.3 L Lipase 51.8 Stool Occult Blood NEGATIVE Impressions: Abdomen/Pelvis CT 09/05/17 00:00 IMPRESSION: 6 x 2 cm abscess in the right lower quadrant along the medial aspect of the distal ileum. Suspect a perforated ileal diverticulum. Findings discussed with the patient's attending surgeon. Assessment & Plan - Diagnosis (1) Ileitis Is this a current diagnosis for this admission?: Yes Plan: Continues IV antibiotics with possible abscess currently improving follow with the surgery and GI (2) Abdominal pain Qualifiers: Abdominal location: generalized Qualified Code(s): R10.84 - Generalized abdominal pain Is this a current diagnosis for this admission?: Yes Plan: Due to as above conditions (3) Type 2 diabetes mellitus Qualifiers: Diabetes mellitus longterm insulin use: without stave inspector use Is this a current diagnosis for this admission?: Yes Plan: Continues to current medications and sliding scale (4) Hypertension Qualifiers: Hypertension type: essential hypertension Qualified Code(s): I10 - Essential (primary) hypertension Is this a current diagnosis for this admission?: Yes Plan: Continues to current medications (5) Hyperlipidemia Qualifiers: Hyperlipidemia type: unspecified Qualified Code(s): E78.5 - Hyperlipidemia , unspecified Is this a current diagnosis for this admission?: Yes (6) Fatty liver Is this a current diagnosis for this admission?: Yes (7) Syncope Qualifiers: Syncope type: unspecified Qualified Code(s): R55 - Syncope and collapse Is this a current diagnosis for this admission?: Yes - Time Time Spent with patient: 15-24 minutes Medications reviewed and adjusted accordingly: Yes Anticipated discharge: Home Within: Other - Inpatient Certification Medical Necessity: Need Close Monitoring Due to Risk of Patient Decompensation, Need For IV Fluids, Need for IV Antibiotics Post Hospital Care: D/C Property Insurance Inspector Documentation - Plan Summary Plan Summary: Continues to IV Cipro and Flagyl patient's white count is also improving patient start remain afebrile This with the patient and the in the room regarding the patient's current condition and all the test reports
[2017-09-06] MEDS: FAMOTIDINE INJ/PF 20 MG/2 ML SDV IV SCH ×2 (10:42→21:05)
[2017-09-06] MEDS: ENOXAPARIN SODIUM INJ 40 MG/0.4 ML DISP.SYRIN SUBCUT SCH (10:42)
[2017-09-06] MEDS: VALSARTAN 160 MG TABLET PO SCH (10:42)
[2017-09-06] MEDS: HYDROCHLOROTHIAZIDE 12.5 MG TABLET PO SCH (13:54)
[2017-09-06 14:34] LABS: APPEARANCE,URINE CLEAR; BILIRUBIN,URINE NEGATIVE (NEGATIVE); COLOR,URINE YELLOW; GLUCOSE, URINE NEGATIVE (NEGATIVE); KETONES,URINE 20 mg/dL (NEGATIVE); LEUKOCYTE ESTERASE,URINE SMALL (NEGATIVE); NITRITE,URINE NEGATIVE (NEGATIVE); PROTEIN,URINE 100 mg/dL (NEGATIVE); URINE SPECIFIC GRAVITY 1.011
[2017-09-06] MEDS: NORMAL SALINE 1000 ML 1,000 ML IV PRN (18:10)
--- NOTE | 2017-09-06 20:42 | PDOC PROGRESS REPORT ---
Subjective Progress Note for:: 09/06/17 Subjective:: feels much better. Less RLQ pains Reason For Visit: ABDOMINAL PAIN Physical Exam Vital Signs: Temp Pulse Resp BP Pulse Ox 99.5 F 70 18 132/72 H 93 09/06/17 19:52 09/06/17 19:52 09/06/17 19:52 09/06/17 19:52 09/06/17 19:52 Intake & Output 09/05/17 09/06/17 09/07/17 06:59 06:59 06:59 Intake Total 257 694 8834 Output Total 200 200 Balance 556 595 6267 Weight 99.75 kg 101.5 kg Exam: Mild RLQ tenderness Results Laboratory Results: 09/06/17 06:28 09/06/17 06:28 09/06/17 09/06/17 09/06/17 06:28 06:28 14:15 WBC 12.2 H RBC 4.17 L Hgb 11.4 L Hct 34.2 L MCV 82 MCH 27.2 MCHC 33.2 RDW 14.7 H Plt Count 165 Seg Neutrophils % 79.3 H Lymphocytes % 11.4 L Monocytes % 8.3 Eosinophils % 0.4 Basophils % 0.6 Absolute Neutrophils 9.7 H Absolute Lymphocytes 1.4 Absolute Monocytes 1.0 Absolute Eosinophils 0.0 Absolute Basophils 0.1 Sodium 141.4 Potassium 4.0 Chloride 107 Carbon Dioxide 24 Anion Gap 10 BUN 12 Creatinine 0.88 Est GFR ( Amer) > 60 Est GFR (Non-Af Amer) > 60 Glucose 107 Calcium 8.3 L Lipase 51.8 Urine Color YELLOW Urine Appearance CLEAR Urine pH 6.0 Ur Specific [place] 1.011 Urine Protein 100 H Urine Glucose (UA) NEGATIVE Urine Ketones 20 H Urine Blood SMALL H Urine Nitrite NEGATIVE Ur Leukocyte Esterase SMALL H Urine WBC (Auto) 2 Urine RBC (Auto) 1 09/04/17 14:30 Clean Catch Midstream Urine Culture - Final NO GROWTH 2 DAYS Impressions: Abdomen/Pelvis CT 09/05/17 00:00 IMPRESSION: 6 x 2 cm abscess in the right lower quadrant along the medial aspect of the distal ileum. Suspect a perforated ileal diverticulum. Findings discussed with the patient's attending surgeon. Assessment & Plan - Time Time Spent with patient: 15-24 minutes - Plan Summary Plan Summary: OK to start clears and increase as tolerated. Continue IV antibiotics
[2017-09-06] MEDS: ONDANSETRON 4 MG TAB.RAPDIS PO PRN (21:03)
[2017-09-07] MEDS: CIPROFLOXACIN 400 MG/D5W RTU 400 MG/200 ML RTUPB IV SCH (00:27)
[2017-09-07] MEDS: METRONIDAZOLE 500 MG/NS RTU 500 MG/100 ML RTUPB IV SCH ×2 (03:56→08:08)
[2017-09-07] MEDS: NORMAL SALINE 1000 ML 1,000 ML IV PRN (06:46)
[2017-09-07 07:00] LABS: ABSOLUTE BASOPHILS # (AUTO) 0.1 10^3/uL (0.0-0.2); ABSOLUTE EOSINOPHILS # (AUTO) 0.1 10^3/uL (0.0-0.6); ABSOLUTE LYMPHOCYTES (AUTO) 1.7 10^3/uL (0.5-4.7); BASOPHILS % (AUTO) 0.8 % (0-2); EOSINOPHILS % (AUTO) 1.4 % (0-6); HEMATOCRIT 34.7 % (37.9-51.0); HEMOGLOBIN 11.5 g/dL (13.5-17.0); LYMPHOCYTES % (AUTO) 19.4 % (13-45); MEAN CORPUSCULAR HEMOGLOBIN 27.1 pg (27.0-33.4); MEAN CORPUSCULAR HGB CONC 33.1 g/dL (32.0-36.0); MEAN CORPUSCULAR VOLUME 82 fl (80-97); MONOCYTES % (AUTO) 11.5 % (3-13); PLATELET COUNT 194 10^3/uL (150-450); RED BLOOD COUNT 4.24 10^6/uL (4.35-5.55); RED CELL DISTRIBUTION WIDTH 14.8 % (11.5-14.0); SEGMENTED NEUTROPHILS % (AUTO) 66.9 % (42-78); TOTAL CELLS COUNTED % (AUTO) 100 %; WHITE BLOOD COUNT 8.9 10^3/uL (4.0-10.5)
[2017-09-07 07:17] LABS: ANION GAP 12 (5-19); BLOOD UREA NITROGEN 10 mg/dL (7-20); CALCIUM 8.3 mg/dL (8.4-10.2); CARBON DIOXIDE 22 mmol/L (22-30); CHLORIDE 108 mmol/L (98-107); GLUCOSE 105 mg/dL (75-110); LIPASE 57.8 U/L (23-300); POTASSIUM 3.7 mmol/L (3.6-5.0); SODIUM 141.8 mmol/L (137-145)
--- NOTE | 2017-09-07 08:42 | PDOC PROGRESS REPORT ---
Subjective Progress Note for:: 09/07/17 Subjective:: Patient is currently feeling much better Patients remain afebrile Patient's denied any abdominal pain no nausea no vomiting Patient WBC is also back to normal Patient is currently on a full liquid diet and denied any problems Reason For Visit: ABDOMINAL PAIN Physical Exam Vital Signs: Temp Pulse Resp BP Pulse Ox 98.5 F 74 18 136/74 H 95 09/07/17 05:00 09/07/17 05:00 09/07/17 05:00 09/07/17 05:00 09/07/17 05:00 Intake & Output 09/06/17 09/07/17 09/08/17 06:59 06:59 06:59 Intake Total 400 2600 Output Total 200 Balance 200 2600 Weight 101.5 kg 102.5 kg General appearance: PRESENT: no acute distress, well-developed, well-nourished Head exam: PRESENT: atraumatic, normocephalic Eye exam: PRESENT: conjunctiva pink, EOMI, PERRLA. ABSENT: scleral icterus Ear exam: PRESENT: normal external ear exam Mouth exam: PRESENT: moist, tongue midline Neck exam: PRESENT: full ROM. ABSENT: carotid bruit, JVD, lymphadenopathy, thyromegaly Respiratory exam: PRESENT: clear to auscultation higinio Cardiovascular exam: PRESENT: RRR. ABSENT: diastolic murmur, rubs, systolic murmur Pulses: PRESENT: normal dorsalis pedis pul, +2 pedal pulses bilateral Vascular exam: PRESENT: normal capillary refill GI/Abdominal exam: PRESENT: normal bowel sounds, soft. ABSENT: distended, guarding, mass, organolmegaly, rebound, tenderness Rectal exam: PRESENT: deferred Extremities exam: ABSENT: pedal edema Musculoskeletal exam: PRESENT: ambulatory Neurological exam: PRESENT: alert, awake, oriented to person, oriented to place , oriented to time, oriented to situation, CN II-XII grossly intact. ABSENT: motor sensory deficit Psychiatric exam: PRESENT: appropriate affect, normal mood. ABSENT: homicidal ideation, suicidal ideation Skin exam: PRESENT: dry, intact, warm. ABSENT: cyanosis, rash Results Laboratory Results: 09/07/17 06:12 09/07/17 06:12 09/06/17 09/07/17 09/07/17 14:15 06:12 06:12 WBC 8.9 RBC 4.24 L Hgb 11.5 L Hct 34.7 L MCV 82 MCH 27.1 MCHC 33.1 RDW 14.8 H Plt Count 194 Seg Neutrophils % 66.9 Lymphocytes % 19.4 Monocytes % 11.5 Eosinophils % 1.4 Basophils % 0.8 Absolute Neutrophils 6.0 Absolute Lymphocytes 1.7 Absolute Monocytes 1.0 Absolute Eosinophils 0.1 Absolute Basophils 0.1 Sodium 141.8 Potassium 3.7 Chloride 108 H Carbon Dioxide 22 Anion Gap 12 BUN 10 Creatinine 0.82 Est GFR ( Amer) > 60 Est GFR (Non-Af Amer) > 60 Glucose 105 Calcium 8.3 L Lipase 57.8 Urine Color YELLOW Urine Appearance CLEAR Urine pH 6.0 Ur Specific [place] 1.011 Urine Protein 100 H Urine Glucose (UA) NEGATIVE Urine Ketones 20 H Urine Blood SMALL H Urine Nitrite NEGATIVE Ur Leukocyte Esterase SMALL H Urine WBC (Auto) 2 Urine RBC (Auto) 1 09/04/17 14:30 Clean Catch Midstream Urine Culture - Final NO GROWTH 2 DAYS Impressions: Abdomen/Pelvis CT 09/05/17 00:00 IMPRESSION: 6 x 2 cm abscess in the right lower quadrant along the medial aspect of the distal ileum. Suspect a perforated ileal diverticulum. Findings discussed with the patient's attending surgeon. Assessment & Plan - Diagnosis (1) Ileitis Is this a current diagnosis for this admission?: Yes Plan: Continues to Cipro and Flagyl currently all improving (2) Abdominal pain Qualifiers: Abdominal location: generalized Qualified Code(s): R10.84 - Generalized abdominal pain Is this a current diagnosis for this admission?: Yes Plan: Due to as above conditions (3) Type 2 diabetes mellitus Qualifiers: Diabetes mellitus senior living insulin use: without senior living use Is this a current diagnosis for this admission?: Yes Plan: Continues to current medications and sliding scale (4) Hypertension Qualifiers: Hypertension type: essential hypertension Qualified Code(s): I10 - Essential (primary) hypertension Is this a current diagnosis for this admission?: Yes Plan: Continues to current medications (5) Hyperlipidemia Qualifiers: Hyperlipidemia type: unspecified Qualified Code(s): E78.5 - Hyperlipidemia , unspecified Is this a current diagnosis for this admission?: Yes (6) Fatty liver Is this a current diagnosis for this admission?: Yes Plan: Currently all stable (7) Syncope Qualifiers: Syncope type: unspecified Qualified Code(s): R55 - Syncope and collapse Is this a current diagnosis for this admission?: Yes - Time Time Spent with patient: 15-24 minutes Medications reviewed and adjusted accordingly: Yes Anticipated discharge: Home Within: Other - Inpatient Certification Medical Necessity: Need Close Monitoring Due to Risk of Patient Decompensation, Need For IV Fluids, Need for IV Antibiotics Post Hospital Care: D/C [place] Documentation - Plan Summary Plan Summary: There is acute with the surgery advance the diet reduce the IV fluidThis with the patient and the in the room
[2017-09-07] MEDS ORDERED: NORMAL SALINE 1000 ML 1,000 ML IV PRN (09:07)
[2017-09-07] MEDS: HYDROCHLOROTHIAZIDE 12.5 MG TABLET PO SCH (09:53)
[2017-09-07] MEDS: VALSARTAN 160 MG TABLET PO SCH (09:55)
[2017-09-07] MEDS: CIPROFLOXACIN HCL 500 MG TABLET PO SCH ×2 (09:55→21:28)
[2017-09-07] MEDS: FAMOTIDINE INJ/PF 20 MG/2 ML SDV IV SCH ×2 (09:55→21:28)
[2017-09-07] MEDS: METRONIDAZOLE 500 MG TABLET PO SCH ×2 (14:10→21:28)
--- NOTE | 2017-09-07 20:06 | PDOC PROGRESS REPORT ---
Subjective Progress Note for:: 09/07/17 Subjective:: minimal abdominal pains. Reason For Visit: ABDOMINAL PAIN Physical Exam Vital Signs: Temp Pulse Resp BP Pulse Ox 98.8 F 62 22 H 135/73 H 96 09/07/17 16:49 09/07/17 16:49 09/07/17 16:49 09/07/17 16:49 09/07/17 16:49 Intake & Output 09/06/17 09/07/17 09/08/17 06:59 06:59 06:59 Intake Total 400 2600 1490 Output Total 200 Balance 200 2600 1490 Weight 101.5 kg 102.5 kg is soft and non tender Exam: abd is soft and non tender Results Laboratory Results: 09/07/17 06:12 09/07/17 06:12 09/07/17 09/07/17 06:12 06:12 WBC 8.9 RBC 4.24 L Hgb 11.5 L Hct 34.7 L MCV 82 MCH 27.1 MCHC 33.1 RDW 14.8 H Plt Count 194 Seg Neutrophils % 66.9 Lymphocytes % 19.4 Monocytes % 11.5 Eosinophils % 1.4 Basophils % 0.8 Absolute Neutrophils 6.0 Absolute Lymphocytes 1.7 Absolute Monocytes 1.0 Absolute Eosinophils 0.1 Absolute Basophils 0.1 Sodium 141.8 Potassium 3.7 Chloride 108 H Carbon Dioxide 22 Anion Gap 12 BUN 10 Creatinine 0.82 Est GFR ( Amer) > 60 Est GFR (Non-Af Amer) > 60 Glucose 105 Calcium 8.3 L Lipase 57.8 Impressions: Abdomen/Pelvis CT 09/05/17 00:00 IMPRESSION: 6 x 2 cm abscess in the right lower quadrant along the medial aspect of the distal ileum. Suspect a perforated ileal diverticulum. Findings discussed with the patient's attending surgeon. Assessment & Plan - Time Time Spent with patient: 15-24 minutes - Plan Summary Plan Summary: Continue to increase diet Agree with Dr Yanes for f/u CT scan prior to possible discharge tomorrow
[2017-09-08] MEDS: METRONIDAZOLE 500 MG TABLET PO SCH (05:46)
[2017-09-08 06:05] LABS: ABSOLUTE EOSINOPHILS # (AUTO) 0.1 10^3/uL (0.0-0.6); ABSOLUTE MONOCYTES (AUTO) 0.9 10^3/uL (0.1-1.4); ABSOLUTE NEUT (AUTO) 5.2 10^3/uL (1.7-8.2); BASOPHILS % (AUTO) 0.5 % (0-2); EOSINOPHILS % (AUTO) 1.9 % (0-6); HEMATOCRIT 34.4 % (37.9-51.0); HEMOGLOBIN 11.6 g/dL (13.5-17.0); LYMPHOCYTES % (AUTO) 14.3 % (13-45); MEAN CORPUSCULAR HEMOGLOBIN 27.4 pg (27.0-33.4); MEAN CORPUSCULAR HGB CONC 33.6 g/dL (32.0-36.0); MEAN CORPUSCULAR VOLUME 82 fl (80-97); MONOCYTES % (AUTO) 12.8 % (3-13); PLATELET COUNT 230 10^3/uL (150-450); RED BLOOD COUNT 4.22 10^6/uL (4.35-5.55); RED CELL DISTRIBUTION WIDTH 14.4 % (11.5-14.0); SEGMENTED NEUTROPHILS % (AUTO) 70.5 % (42-78); TOTAL CELLS COUNTED % (AUTO) 100 %; WHITE BLOOD COUNT 7.3 10^3/uL (4.0-10.5)
[2017-09-08 06:22] LABS: ANION GAP 10 (5-19); BLOOD UREA NITROGEN 13 mg/dL (7-20); CALCIUM 8.4 mg/dL (8.4-10.2); CARBON DIOXIDE 24 mmol/L (22-30); CHLORIDE 108 mmol/L (98-107); GLUCOSE 121 mg/dL (75-110); POTASSIUM 3.7 mmol/L (3.6-5.0); SODIUM 141.9 mmol/L (137-145)
[2017-09-08 08:26] VITALS: BP 138/75
--- NOTE | 2017-09-08 13:07 | PDOC DISCHARGE SUMMARY ---
General - Admit/Disc Date/PCP Admission Date/Primary Care Provider: 09/04/17 10:04 CRISTIAN GARCIA MD Discharge Date: 09/08/17 - Discharge Diagnosis (1) Ileitis Is this a current diagnosis for this admission?: Yes Summary: Currently all resolving with the p.o. antibiotics follow outpatients Dr. Mistry (2) Abdominal pain Is this a current diagnosis for this admission?: Yes Summary: Currently all resolved (3) Type 2 diabetes mellitus Is this a current diagnosis for this admission?: Yes Summary: Continues to current medication (4) Hypertension Is this a current diagnosis for this admission?: Yes Summary: Currently all stable (5) Hyperlipidemia Is this a current diagnosis for this admission?: Yes Summary: to current medications (6) Fatty liver Is this a current diagnosis for this admission?: Yes (7) Syncope Is this a current diagnosis for this admission?: Yes Summary: All workup negative - Additional Information Discharge Diet: Diabetic Discharge Activity: Activity As Tolerated Prescriptions: Ciprofloxacin HCl [Cipro 500 mg Tablet] 500 mg PO Q12 #20 tablet Metronidazole [Flagyl 500 mg Tablet] 500 mg PO Q8 #30 tablet Home Medications: Aspirin [Aspirin EC] 81 mg PO DAILY 09/04/17 Ergocalciferol (Vitamin D2) [Drisdol 50,000 unit (1.25MG) Capsule] 50,000 unit PO MO@1000 09/04/17 Fluticasone Propionate [Flonase Nasal [place] 50 Mcg/[place] 16 gm] 2 sprays NASL DAILY 09/04/17 Glipizide [Glucotrol 5 mg Tablet] 2.5 mg PO BID 09/04/17 Simvastatin [Zocor 20 mg Tablet] 20 mg PO QHS 09/04/17 Valsartan/Hydrochlorothiazide [Diovan Hct 160-12.5 mg Tab] 1 tab PO DAILY Ciprofloxacin HCl [Cipro 500 mg Tablet] 500 mg PO Q12 #20 tablet 09/08/17 Metronidazole [Flagyl 500 mg Tablet] 500 mg PO Q8 #30 tablet 09/08/17 History of Present Illness History of Present Illness: 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 47 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 This is a 47-year-old male with the history of the type 2 diabetes mellitus history of the hypertension's hyperlipidemia and a fatty liver came to the emergency department with a complaint of generalized abdominal pain nausea and not feeling well and passing out episode since last couple of days According to the patient's he was suddenly onset of this abdominal pain not feeling well he was in a tenriism yesterday and because of the pain patients pretty much passing out and patient was brought to the emergency department by the ambulance and the patient have a CT scan of the abdomen and pelvis with IV contrast was done with so some ileitis and some inflammatory disease but other than that no acute finding but patient's white count was 18,000 patient was discharged with the p.o. antibioticWhich patients did not start it yet Patients came to see me in the office this morning still complaining of abdominal pain no fever no chills no nausea no vomiting Patients have a nose family history of the Crohn's disease or inflammatory disease Patient's recently have ultrasound of the abdomen was done was suggestive fatty liver but no other acute finding At this point so decided to admit in the hospital because of the patient's still complaining of her pain and elevated white counts and further GI evaluations and discussed with the patient and the and agree Hospital Course Hospital Course: This is a 47-year-old male admitting in the hospital for the abdominal pain and diagnosed with ileitis and possible abscess patient start with the IV antibiotics Cipro and Flagyl in the Dr. Mistry the food and beverage checker and the general surgery was consulted Patient's response very well with IV antibiotic and switch to the p.o. antibiotic and patient's white count of the blood work is all stable and patients remain afebrile and patients tolerate the p.o. for without any problems Discussed with the general surgery Dr. Walker and suggested no need for repeat CT scan and discussed with Dr. Mistry and suggested continues to p.o. antibiotic and a follow-up outpatients Discussed with the patient and the about that continues to p.o. antibiotic if the patient have any increasing any pain any fever any chills following the ER Otherwise will follow the patient in 1 week and repeat the CBC and Chem-[address] Mistry Physical Exam Vital Signs: Temp Pulse Resp BP Pulse Ox 98.2 F 51 L 16 138/75 H 98 09/08/17 08:25 09/08/17 08:25 09/08/17 08:25 09/08/17 08:25 09/08/17 08:25 Intake & Output 09/07/17 09/08/17 09/09/17 06:59 06:59 06:59 Intake Total 2600 1890 Balance 2600 1890 Weight 102.5 kg 101.8 kg General appearance: PRESENT: no acute distress, well-developed, well-nourished Head exam: PRESENT: atraumatic, normocephalic Eye exam: PRESENT: conjunctiva pink, EOMI, PERRLA. ABSENT: scleral icterus Ear exam: PRESENT: normal external ear exam Mouth exam: PRESENT: moist, tongue midline Neck exam: PRESENT: full ROM. ABSENT: carotid bruit, JVD, lymphadenopathy, thyromegaly Respiratory exam: PRESENT: clear to auscultation higinio Cardiovascular exam: PRESENT: RRR. ABSENT: diastolic murmur, rubs, systolic murmur Pulses: PRESENT: normal dorsalis pedis pul, +2 pedal pulses bilateral Vascular exam: PRESENT: normal capillary refill GI/Abdominal exam: PRESENT: normal bowel sounds, soft. ABSENT: distended, guarding, mass, organolmegaly, rebound, tenderness Rectal exam: PRESENT: deferred Extremities exam: ABSENT: pedal edema Musculoskeletal exam: PRESENT: ambulatory Neurological exam: PRESENT: alert, awake, oriented to person, oriented to place , oriented to time, oriented to situation, CN II-XII grossly intact. ABSENT: motor sensory deficit Psychiatric exam: PRESENT: appropriate affect, normal mood. ABSENT: homicidal ideation, suicidal ideation Skin exam: PRESENT: dry, intact, warm. ABSENT: cyanosis, rash Results Laboratory Results: 09/08/17 05:46 09/08/17 05:46 09/08/17 09/08/17 05:46 05:46 WBC 7.3 RBC 4.22 L Hgb 11.6 L Hct 34.4 L MCV 82 MCH 27.4 MCHC 33.6 RDW 14.4 H Plt Count 230 Seg Neutrophils % 70.5 Lymphocytes % 14.3 Monocytes % 12.8 Eosinophils % 1.9 Basophils % 0.5 Absolute Neutrophils 5.2 Absolute Lymphocytes 1.0 Absolute Monocytes 0.9 Absolute Eosinophils 0.1 Absolute Basophils 0.0 Sodium 141.9 Potassium 3.7 Chloride 108 H Carbon Dioxide 24 Anion Gap 10 BUN 13 Creatinine 0.80 Est GFR ( Amer) > 60 Est GFR (Non-Af Amer) > 60 Glucose 121 H Calcium 8.4 09/06/17 14:15 Clean Catch Midstream Urine Culture - Final NO GROWTH 2 DAYS Impressions: Abdomen/Pelvis CT 09/05/17 00:00 IMPRESSION: 6 x 2 cm abscess in the right lower quadrant along the medial aspect of the distal ileum. Suspect a perforated ileal diverticulum. Findings discussed with the patient's attending surgeon. Qualifiers - * PATIENT BEING DISCHARGED WITH ANY OF THE FOLLOWING DIAGNOSIS: No VTE patient discharged on overlapping Therapy?: Yes Plan Time Spent: Greater than 30 Minutes - Discharge home with the p.o. antibiotic Following a one-week repeat CBC and Chem-7 in 1 week This with the patient and the regarding the all about test results and close follow-up
== END 2017-09-08 08:50 | disposition home or self-care (01) | DRG 392 ==
LOC: 2S 10:04
PROVIDERS: ADMIT Family Medicine; ATTEND Family Medicine
DX: K52.9 Noninfective gastroenteritis and colitis, unspecified (principal); E11.9 Type 2 diabetes mellitus without complications; I10 Essential (primary) hypertension; E78.5 Hyperlipidemia, unspecified; R55 Syncope and collapse; K76.0 Fatty (change of) liver, not elsewhere classified; Z79.84 Long term (current) use of oral hypoglycemic drugs; Z79.82 Long term (current) use of aspirin; Z79.899 Other long term (current) drug therapy
CPT/HCPCS: 36415; 74178; 80048; 80053; 81001; 82272; 82962; 83690; 85025; 87040; 87086; 87493; 93005; 93010; 94799; J0744; J1170; J1650; J7030; S0028; S0119